=== PATIENT | male | born 1940 | race Caucasian/White ===

== ENCOUNTER 2019-09-19 17:43 | Emergency (ER) | payer MEDICARE, OTHER ==
--- NOTE | 2019-09-19 18:19 | EDM.PDOC ---
ED HPI GENERAL MEDICAL PROBLEM - General Chief Complaint: Lower Extremity Injury/Pain Stated Complaint: ankle pain Time Seen by Provider: 09/19/19 18:00 Source of Information: Reports: Patient History Limitations: Reports: No Limitations - History of Present Illness INITIAL COMMENTS - FREE TEXT/NARRATIVE: Bobby presents today for complaints of left ankle pain after stepping off of his tractor and stepping wrong. He reports he is not able to walk or put any weight on the foot. [place], [place] He denies any other injuries. He denies fever, chills, nausea, vomiting, change in bowel/bladder. Last ate/drank at 1230 Weight 285lbs History of hypertension, hyperlipidemia, PE after surgical procedure. He currently take metoprolol, statin. No use of long goods drier anticoagulants. Sons contact Binh [phone] Alvin [phone] left ankle Pain Score (Numeric/FACES): 7 - Related Data Allergies Allergy/AdvReac Type Severity Reaction Status Date / Time No Known Allergies Allergy Verified 09/19/19 18:24 Home Meds: Home Meds Metoprolol Succinate 1 tab PO DAILY 09/19/19 [History] atorvaSTATin Calcium [Atorvastatin Calcium] 1 tab PO DAILY 09/19/19 [History] Review of Systems - Review of Systems Review Of Systems: See Below Constitutional: Reports: No Symptoms Eyes: Reports: No Symptoms Ears: Reports: No Symptoms Nose: Reports: No Symptoms Mouth/Throat: Reports: No Symptoms Respiratory: Reports: No Symptoms Cardiovascular: Reports: No Symptoms Genitourinary: Reports: No Symptoms Musculoskeletal: Reports: Other (left ankle pain, deformity) Skin: Reports: No Symptoms Neurological: Reports: No Symptoms Psychiatric: Reports: No Symptoms ED EXAM, GENERAL - Physical Exam Exam: See Below Free Text/Narrative:: Bobby reports stepping off of his tractor and hurting his left ankle. He reports use of a blood thinner for past PE. Abril SALVADOR contacted. Exam Limited By: No Limitations General Appearance: Alert, WD/WN, Mild Distress Eye Exam: Bilateral Eye: Normal Inspection Ears: Normal External Exam, Normal Canal, Hearing Grossly Normal, Normal TMs Throat/Mouth: Normal Inspection, Normal Lips, Normal Teeth, Normal Oropharynx, Normal Voice, No Airway Compromise Head: Atraumatic, Normocephalic Neck: Normal Inspection, Supple, Non-Tender, Full Range of Motion Respiratory/Chest: No Respiratory Distress, Lungs Clear, Normal Breath Sounds, No Accessory Muscle Use, Chest Non-Tender Cardiovascular: Normal Peripheral Pulses, No Murmur Extremities: Normal Capillary Refill, Limited Range of Motion (deformity left ankle, pain, pedal pulses intact, equal bilaterally), Other (trace pedal edema bilateral feet to lower calf. 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 Alignment improved.) Joint Reduction Complications: No Progress/Comments: CMS in tact post reduction and after fiberglass/tess splint. Patient tolerated well. - Splinting Left Lower Extremity Splint Site: left lower leg Pre-Procedure NV Status: Normal Post-Procedure NV Status: Normal Splint Material: Fiberglass Splint Design: Sugar Tong, Other (and posterior/dorsal suppert at 45 degree ankle) Applied & Form Fitted By: Provider Provider Post-Splint Application NV Check: NV Status Normal, Good Position Complications: No Course - Vital Signs Last Recorded V/S: Last Vital Signs Temp 36.9 C 09/19/19 18:26 Pulse 68 09/19/19 18:26 Resp 16 09/19/19 18:26 BP 158/88 H 09/19/19 18:26 Pulse Ox 96 09/19/19 18:26 - Orders/Labs/Meds Orders: Active Orders 24 hr Category Date Time Status Ankle 2V Lt [CR] Stat Exams 09/19/19 19:11 Taken Ankle Min 3V Lt [CR] Stat Exams 09/19/19 18:04 Taken Sodium Chloride 0.9% [Saline Flush] Med 09/19/19 18:54 Active 10 ml FLUSH ASDIRECTED PRN Saline Lock Insert [OM.PC] Routine Oth 09/19/19 18:54 Ordered Medication Orders Sodium Chloride (Saline Flush) 10 ml FLUSH ASDIRECTED PRN PRN Reason: Keep Vein Open Labs: Laboratory Tests 09/19/19 09/19/19 09/19/19 Range/Units 18:54 18:54 18:54 WBC 8.2 (4.5-11.0) K/uL RBC 5.26 (4.30-5.90) M/uL Hgb 15.8 H (12.0-15.0) g/dL Hct 48.7 (40.0-54.0) % MCV 93 (80-98) fL MCH 30 (27-31) pg MCHC 32 (32-36) % Plt Count 185 (150-400) K/uL Neut % (Auto) 77 H (36-66) % Lymph % (Auto) 13 L (24-44) % [place] % (Auto) 8 H (2-6) % Eos % (Auto) 2 (2-4) % Baso % (Auto) 0 (0-1) % PT 10.1 (9.5-12.0) sec INR 0.93 (0.80-1.20) APTT 25.0 L (27.0-36.0) sec Sodium 144 (140-148) mmol/L Potassium 4.3 (3.6-5.2) mmol/L Chloride 108 (100-108) mmol/L Carbon Dioxide 29 (21-32) mmol/L Anion Gap 7.3 (5.0-14.0) mmol/L BUN 20 H (7-18) mg/dL Creatinine 1.3 (0.8-1.3) mg/dL Est Cr Clr Drug Dosing 50.68 mL/min Estimated GFR (MDRD) 54 L (>60) Glucose 95 (74-106) mg/dL Calcium 9.0 (8.5-10.1) mg/dL SARS Virus RNA (PCR) (NEGATIVE) 09/19/19 Range/Units 19:40 WBC (4.5-11.0) K/uL RBC (4.30-5.90) M/uL Hgb (12.0-15.0) g/dL Hct (40.0-54.0) % MCV (80-98) fL MCH (27-31) pg MCHC (32-36) % Plt Count (150-400) K/uL Neut % (Auto) (36-66) % Lymph % (Auto) (24-44) % [place] % (Auto) (2-6) % Eos % (Auto) (2-4) % Baso % (Auto) (0-1) % PT (9.5-12.0) sec INR (0.80-1.20) APTT (27.0-36.0) sec Sodium (140-148) mmol/L Potassium (3.6-5.2) mmol/L Chloride (100-108) mmol/L Carbon Dioxide (21-32) mmol/L Anion Gap (5.0-14.0) mmol/L BUN (7-18) mg/dL Creatinine (0.8-1.3) mg/dL Est Cr Clr Drug Dosing mL/min Estimated GFR (MDRD) (>60) Glucose (74-106) mg/dL Calcium (8.5-10.1) mg/dL SARS Virus RNA (PCR) Negative (NEGATIVE) Meds: Medications Generic Name Dose Route Start Last Admin Trade Name Freq PRN Reason Stop Dose Admin Sodium Chloride 10 ml 09/19/19 18:54 Saline Flush FLUSH ASDIRECTED PRN Keep Vein Open Discontinued Medications Generic Name Dose Route Start Last Admin Trade Name Freq PRN Reason Stop Dose Admin Ketorolac Tromethamine 30 mg 09/19/19 18:22 09/19/19 18:29 Toradol IM 09/19/19 18:23 30 mg ONETIME ONE Administration Propofol 100 mg 09/19/19 20:18 Diprivan 20 Ml IVPUSH 09/19/19 20:19 ONETIME ONE - Radiology Interpretation Free Text/Narrative:: X-ray left ankle shows distal tib/fib displaced fractures and dislocation Post reduction x-ray shows improved alignment. - Re-Assessments/Exams Free Text/Narrative Re-Assessment/Exam: 09/19/19 18:40 distal tib/fib displaced fractures 09/19/19 18:54 Kaylee MCCORMACK reviewed X-ray, will accept patient for transfer and admission. Patient will go through the emergency room. 09/19/19 20:37 Kaylee Mckeon notified of reduction, status of medication and risk for PE with hospitalization. All her questions were answered. Propofol 100mg IV per anesthesia COVID19 negative 09/19/19 20:38 09/19/19 20:42 Transfer via EMS to [facility] for surgical care. Departure - Departure Time of Disposition: 20:42 Disposition: DC/Tfer to Acute Hospital 02 Condition: Good Clinical Impression: Fracture of tibia AND fibula, Dislocation of ankle, closed - Discharge Information *PRESCRIPTION DRUG MONITORING PROGRAM REVIEWED*: No *COPY OF PRESCRIPTION DRUG MONITORING REPORT IN PATIENT MARTELL: No Referrals: PCP,None [Primary Care Provider] - Forms: ED Department Discharge Additional Instructions: Transfer to [facility] for ORTHO care, surgical intervention per EMS. Sepsis Event Note (ED) - Focused Exam Vital Signs: Vital Signs Temp Pulse Resp BP Pulse Ox 09/19/19 18:26 36.9 C 68 16 158/88 H 96 09/19/19 17:57 35.4 C L 64 17 198/91 H 96 - My Orders Last 24 Hours: My Active Orders 09/19/19 18:04 Ankle Min 3V Lt [CR] Stat 09/19/19 18:54 Sodium Chloride 0.9% [Saline Flush] 10 ml FLUSH ASDIRECTED PRN Saline Lock Insert [OM.PC] Routine 09/19/19 19:11 Ankle 2V Lt [CR] Stat - Assessment/Plan Last 24 Hours: My Active Orders 09/19/19 18:04 Ankle Min 3V Lt [CR] Stat 09/19/19 18:54 Sodium Chloride 0.9% [Saline Flush] 10 ml FLUSH ASDIRECTED PRN Saline Lock Insert [OM.PC] Routine 09/19/19 19:11 Ankle 2V Lt [CR] Stat Assessment:: Closed displaced left distal tib/fib fracture dislocation Plan: Left tib/fib fracture dislocation reduced and splinted Transfer via EMS to [facility] for ORTHO care Acceptance per Lacey Aguirre
[2019-09-19] MEDS ORDERED: Ketorolac 30 MG/ML SDV IM ONE (18:22)
[2019-09-19] MEDS ORDERED: Sodium Chloride 0.9% 10 ML Syringe FLUSH PRN (18:54)
[2019-09-19] MEDS ORDERED: Propofol 200 MG/20 ML SDV IVPUSH ONE (20:18)
--- NOTE | 2019-09-22 09:11 | CR ---
Ankle Min 3V Lt CLINICAL HISTORY: Fall, pain FINDINGS: Soft tissues are swollen. There is a trimalleolar fracture with lateral subluxation of the talus. Subtalar joint appears intact. There is some osteoarthritic change Impression: Trimalleolar fracture with subluxation
--- NOTE | 2019-09-22 09:12 | CR ---
Ankle 2V Lt CLINICAL HISTORY: Postreduction FINDINGS: There is been reduction of the lateral talar subluxation. There is a trimalleolar fracture there is also a fracture of the anterior plafond Impression: Reduction of tib-fib fracture dislocation
== END 2019-09-19 20:50 ==
LOC: JP.ED 17:43
DX: S93.05XA Dislocation of left ankle joint, initial encounter (principal); S82.852A Displaced trimalleolar fracture of left lower leg, initial encounter for closed fracture; I10 Essential (primary) hypertension; E78.5 Hyperlipidemia, unspecified; Z20.828 Contact with and (suspected) exposure to other viral communicable diseases; Z86.711 Personal history of pulmonary embolism; Z79.899 Other long term (current) drug therapy; X50.1XXA Overexertion from prolonged static or awkward postures, initial encounter
CPT/HCPCS: 27842; 36415; 73600; 73610; 80048; 85025; 85610; 85730; 96372; 99285; J1885; U0002; 99283